=== PATIENT | female | born 2005 | race African-American/Black ===

== ENCOUNTER 2025-04-17 13:27 | Emergency (ER) | payer MEDICAID ==
[~2025-04-17] VITALS: Ht 165.1 cm; Wt 77.0 kg
[2025-04-17 13:39] VITALS: O2SAT 100
[2025-04-17 13:40] VITALS: BP 117/87; PULSE 69; RESP 18; TEMP 37.1; O2SAT 100
== END 2025-04-17 16:59 | disposition left against medical advice (07) ==
LOC: ER 13:27
DX: H57.11 Ocular pain, right eye (principal); Z53.21 Procedure and treatment not carried out due to patient leaving prior to being seen by health care provider